=== PATIENT | female | born 1950 | race Caucasian/White ===

== ENCOUNTER 2017-08-18 17:40 | Emergency (ER) | payer OTHER ==
[~2017-08-18] VITALS: Ht 170.2 cm; Wt 108.9 kg
--- NOTE | 2017-08-18 18:08 | ED.ADGEN ---
Past History Past Medical History: Anxiety, Bipolar, Depression, Other Adult General Chief Complaint Chief Complaint " ... I am getting kicked out of my place where I live... I just want to .. I first want to syed my social security check... and give the money to my kids.. so then it will be time for me to go...".." I am going to cut my wrists..." HPI HPI Patient is a 66 year old female who presents with above hx and complaints of suicidality ideation and depression. Pt. has hx bipolar depression, psych disorder, and borderline personality traits . Patient has had previous 3 prior suicide attempts to by cutting her wrist and one by med overdose. Patient denies any medical congestion currently. Patient very distraught about request by the assisted nursing facility to have her move out because she is has violated housing regulations repeatedly. Patient states she will color this time by cutting her wrists, but has not done so because she wants to syed her disability check first. Patient does have a past history of polysubstance abuse. Review of Systems Review of Systems Constitutional: Denies fever or chills [] Eyes: Denies change in visual acuity, redness, or eye pain [] HENT: Denies nasal congestion or sore throat [] Respiratory: Denies cough or shortness of breath [] Cardiovascular: No additional information not addressed in HPI [] GI: Denies abdominal pain, nausea, vomiting, bloody stools or diarrhea [] : Denies dysuria or hematuria [] Musculoskeletal: Denies back pain or joint pain []history of chronic fibromyalgia pain Integument: Denies rash or skin lesions [] Neurologic: Denies headache, focal weakness or sensory changes [] Endocrine: Denies polyuria or polydipsia [] All other systems were reviewed and found to be within normal limits, except as documented in this note. Family History Family History Noncontributory Current Medications Current Medications Current Medications Medications (Trade) Dose Ordered Sig/Juan Jose Start Time Stop Time Status Last Admin Dose Admin Acetaminophen/ Hydrocodone Bitart (Lortab 7.5/325) 1 tab 1X ONCE 08/19/17 01:45 08/19/17 02:13 DC 08/19/17 01:41 1 TAB Alprazolam (Xanax) 0.5 mg 1X ONCE 08/19/17 02:15 08/19/17 02:16 DC Diphenhydramine HCl (Benadryl) 50 mg 1X ONCE 08/18/17 22:15 08/18/17 22:16 DC 08/18/17 22:11 50 MG Magnesium Hydroxide (Milk Of Magnesia) 2,400 mg 1X ONCE 08/18/17 20:15 08/18/17 20:16 DC 08/18/17 20:41 2,400 MG Olanzapine (ZyPREXA ZYDIS) 5 mg 1X PRN PRN 08/19/17 01:30 08/19/17 01:39 5 MG Olanzapine (ZyPREXA) 5 mg 1X ONCE 08/18/17 22:15 08/18/17 22:16 DC 08/18/17 22:07 5 MG Ondansetron HCl (Zofran) 4 mg 1X ONCE 08/18/17 19:45 08/18/17 19:46 DC 08/18/17 19:37 4 MG Sodium Chloride 1,000 ml @ 1,000 mls/hr Q1H 08/18/17 18:09 08/18/17 19:08 DC 08/18/17 18:59 1,000 MLS/HR Allergies Allergies Allergies Coded Allergies Type Severity Reaction Last Updated Verified lorazepam Allergy Unknown 08/18/17 Yes Physical Exam Physical Exam Constitutional: In moderately acute emotional distress, non-toxic appearance. [] HENT: Normocephalic, atraumatic, bilateral external ears normal, oropharynx moist, no oral exudates, nose normal. [] Eyes: PERRLA, EOMI, conjunctiva normal, no discharge. [] Neck: Normal range of motion, no tenderness, supple, no stridor. [] Cardiovascular:Heart rate regular rhythm, no murmur [] Lungs & Thorax: Bilateral breath sounds clear to auscultation [] Abdomen: Bowel sounds normal, soft, no tenderness, no masses, no pulsatile masses. Obese. Old scars Skin: Warm, dry, no erythema, no rash. [] Back: No tenderness, no CVA tenderness. [] Extremities: No tenderness, no cyanosis, no clubbing, ROM intact, no edema. [] Neurologic: Alert and oriented X 3, normal motor function, normal sensory function, no focal deficits noted. [] Psychologic: Affect anxious and tearful, judgement poor insight, impulsive, mood depressed. Current Patient Data Vital Signs Vital Signs Date Time Temp Pulse Resp B/P (MAP) Pulse Ox O2 Delivery O2 Flow Rate FiO2 08/19/17 01:57 98.7 74 20 112/67 (82) 99 08/19/17 01:41 Room Air Lab Results Laboratory Tests Test 08/18/17 18:15 08/18/17 18:35 Urine Collection Type Unknown Urine Color Yellow Urine Clarity Hazy Urine pH 6.5 Urine Specific [place] 1.015 Urine Protein Neg (NEG-TRACE) Urine Glucose (UA) Neg mg/dL (NEG) Urine Ketones (Stick) Neg mg/dL (NEG) Urine Blood Neg (NEG) Urine Nitrite Neg (NEG) Urine Bilirubin Neg (NEG) Urine Urobilinogen Dipstick 0.2 mg/dL (0.2 mg/dL) Urine Leukocyte Esterase Neg (NEG) Urine RBC 1-2 /HPF (0-2) Urine WBC Occ /HPF (0-4) Urine Squamous Epithelial Cells Many /LPF Urine Bacteria Few /HPF (0-FEW) Urine Mucus Slight /LPF Urine Opiates Screen Pos (NEG) Urine Methadone Screen Neg (NEG) Urine Barbiturates Neg (NEG) Urine Phencyclidine Screen Neg (NEG) Urine Amphetamine/Methamphetamine Neg (NEG) Urine Benzodiazepines Screen Pos (NEG) Urine Cocaine Screen Neg (NEG) Urine Cannabinoids Screen Neg (NEG) Urine Ethyl Alcohol Neg (NEG) White Blood Count 9.7 x10^3/uL (4.0-11.0) Red Blood Count 4.21 x10^6/uL (3.50-5.40) Hemoglobin 12.9 g/dL (12.0-15.5) Hematocrit 38.1 % (36.0-47.0) Mean Corpuscular Volume 91 fL (79-100) Mean Corpuscular Hemoglobin 31 pg (25-35) Mean Corpuscular Hemoglobin Concent 34 g/dL (31-37) Red Cell Distribution Width 13.0 % (11.5-14.5) Platelet Count 259 x10^3/uL (140-400) Neutrophils (%) (Auto) 57 % (31-73) Lymphocytes (%) (Auto) 34 % (24-48) Monocytes (%) (Auto) 7 % (0-9) Eosinophils (%) (Auto) 2 % (0-3) Basophils (%) (Auto) 0 % (0-3) Neutrophils # (Auto) 5.6 x10^3uL (1.8-7.7) Lymphocytes # (Auto) 3.3 x10^3/uL (1.0-4.8) Monocytes # (Auto) 0.6 x10^3/uL (0.0-1.1) Eosinophils # (Auto) 0.2 x10^3/uL (0.0-0.7) Basophils # (Auto) 0.0 x10^3/uL (0.0-0.2) Erythrocyte Sedimentation Rate 40 (0-25) H Prothrombin Time 10.8 SEC (9.4-11.4) Prothrombin Time INR 1.1 (0.9-1.1) PTT 25 SEC (23-33) Sodium Level 139 mmol/L (136-145) Potassium Level 4.5 mmol/L (3.5-5.1) Chloride Level 101 mmol/L (98-107) Carbon Dioxide Level 27 mmol/L (21-32) Anion Gap 11 (6-14) Blood Urea Nitrogen 20 mg/dL (7-20) Creatinine 0.8 mg/dL (0.6-1.0) Estimated GFR (Cockcroft-Gault) 72.0 Glucose Level 113 mg/dL (70-99) H Calcium Level 9.3 mg/dL (8.5-10.1) Magnesium Level 1.7 mg/dL (1.8-2.4) L Troponin I Quantitative < 0.017 ng/mL (0-0.055) Salicylates Level 5.2 mg/dL (2.8-20.0) Salicylate Last Dose Date Unknown Salicylate Last Dose Time Unknown Acetaminophen Level < 2.0 mcg/mL (10-30) L Acetaminophen Last Dose Date Unknown Acetaminophen Last Dose Time Unknown Ethyl Alcohol Level < 10 mg/dL (0-10) EKG EKG My interpretation of EKG shows a sinus rhythm at 69 bpm with no acute changes. There is some mild left axis changes. There is some nonspecific inferior changes. No findings of acute STEMI with contralateral changes. Radiology/Procedures Radiology/Procedures [] Course & Med Decision Making Course & Med Decision Making Pertinent Labs and Imaging studies reviewed. (See chart for details) Telemetry psych- Dr. Rica Sherwood - recommends admission for severe exacerbation of her depression, bipolar disorder. . See report. [facility] agreed [facility] accept patient 0130 hrs. [] Final Impression Final Impression 1. Suicidal ideation 2. Depression 3. Chronic pain 4. Hypomagnesium 5. Hx .Borderline Personality 6. Hx. Bipolar[] 7. Morbid Obesity 8. Fibromyalgia Problems: Dragon Disclaimer Dragon Disclaimer This electronic medical record was generated, in whole or in part, using a voice recognition dictation system. SANNA ANDRES MD Aug 18, 2017 18:08
[2017-08-18] MEDS ORDERED: IV NORMAL SALINE 1,000ML 1,000 ML IV SCH (18:09)
[2017-08-18 18:55] LABS: BASO % 0 % (0-3); EOS # 0.2 x10^3/uL (0.0-0.7); EOS % 2 % (0-3); HEMATOCRIT 38.1 % (36.0-47.0); HEMOGLOBIN 12.9 g/dL (12.0-15.5); LYMPH # 3.3 x10^3/uL (1.0-4.8); LYMPH % 34 % (24-48); MEAN CORPUSCULAR HEMOGLOBIN 31 pg (25-35); MEAN CORPUSCULAR HGB CONC 34 g/dL (31-37); MEAN CORPUSCULAR VOLUME 91 fL (79-100); MONO # 0.6 x10^3/uL (0.0-1.1); MONO % 7 % (0-9); NEUT # 5.6 x10^3uL (1.8-7.7); NEUT % 57 % (31-73); PLATELET COUNT 259 x10^3/uL (140-400); RED BLOOD COUNT 4.21 x10^6/uL (3.50-5.40); WHITE BLOOD COUNT 9.7 x10^3/uL (4.0-11.0)
[2017-08-18 19:04] LABS: CALCIUM 9.3 mg/dL (8.5-10.1); CREATININE 0.8 mg/dL (0.6-1.0); MAGNESIUM 1.7 mg/dL (1.8-2.4); POTASSIUM 4.5 mmol/L (3.5-5.1)
[2017-08-18 19:06] LABS: AMPHETAMINE/METHAMPHETAMINE NEG (NEG); BARBITURATES NEG (NEG); BENZODIAZEPINES POS (NEG); CANNABINOIDS NEG (NEG); COCAINE NEG (NEG); METHADONE NEG (NEG); OPIATES POS (NEG); PHENCYCLIDINE NEG (NEG)
[2017-08-18 19:08] LABS: ACETAMIN < 2.0 mcg/mL (10-30); ETHANOL < 10 mg/dL (0-10); SALIC 5.2 mg/dL (2.8-20.0)
[2017-08-18 19:30] LABS: BILIRUBIN,URINE NEG (NEG); CLARITY,URINE HAZY; COLOR,URINE YELLOW; GLUCOSE,URINE NEG (NEG)
[2017-08-18 19:31] LABS: BACTERIA,URINE FEW /HPF (0-FEW); NITRITE,URINE NEG (NEG); SQUAMOUS EPITHELIAL CELL,UR MANY /LPF; UROBILINOGEN,URINE 0.2 mg/dL (0.2 mg/dL); WBC,URINE OCC /HPF (0-4)
[2017-08-18] MEDS ORDERED: ONDANSETRON PF 4 MG/2 ML VIAL. IV ONE (19:45)
[2017-08-18 20:06] LABS: SEDIMENTATION RATE 40 (0-25)
[2017-08-18] MEDS ORDERED: MAGNESIUM HYDROXIDE 2,400 MG/30 ML ORAL.SUSP. PO ONE (20:15)
[2017-08-18] MEDS ORDERED: OLANZapine 2.5 MG TABLET PO ONE (22:15)
[2017-08-18] MEDS ORDERED: diphenhydrAMINE 50 MG/ML VIAL IVP ONE (22:15)
[2017-08-18] MEDS ORDERED: ALPRAZolam 0.25 MG TABLET PO ONE (22:15)
[2017-08-19] MEDS ORDERED: ALPRAZolam 0.5 MG TABLET PO ONE (01:30)
[2017-08-19] MEDS ORDERED: HYDROcodone/APAP 7.5/325MG 1 TAB TABLET ONE (01:38)
[2017-08-19] MEDS ORDERED: HYDROcodone/APAP 7.5/325MG 1 TAB TABLET PO ONE (01:45)
[2017-08-19 01:57] VITALS: BP 112/67
[2017-08-19] MEDS ORDERED: ALPRAZolam 0.25 MG TABLET PO ONE (02:15)
--- NOTE | 2017-08-19 04:34 | EKG ---
[address] [address] Test Date: 2017-08-18 Test Time: 18:31:14 Pat Name: AMNA GRIGGS Department: Room: Gender: F Community Relations Specialist: : [id number] Requested By: SANNA ANDRES Order Number: [id number] Reading MD: Jorge Casillas Measurements Intervals Only Rate: 69 P: 45 [place]: 164 QRS: -18 QRSD: 70 T: 18 QT: 376 QTc: 404 Interpretive Statements SINUS RHYTHM LEFTWARD AXIS QRS(T) CONTOUR ABNORMALITY CONSISTENT WITH POSSIBLE INFERIOR INFARCT PROBABLY OLD ABNORMAL ECG RI6.01 No previous ECG available for comparison Electronically Signed On 08-22-2017 14:53:23 DISASTER RESPONSE DIRECTOR by Jorge Casillas
== END 2017-08-19 01:55 | disposition short-term general hospital (02) ==
LOC: EEVIPCON 17:40 → ER 17:40
DX: R45.851 Suicidal ideations (principal); F31.9 Bipolar disorder, unspecified; G89.29 Other chronic pain; E83.42 Hypomagnesemia; F60.3 Borderline personality disorder; E66.01 Morbid (severe) obesity due to excess calories; M79.7 Fibromyalgia; F41.9 Anxiety disorder, unspecified; Z88.8 Allergy status to other drugs, medicaments and biological substances
CPT/HCPCS: 36415; 80048; 80307; 81001; 83735; 84443; 84484; 85025; 85610; 85651; 85730; 93005; 96361; 96374; 96375; 99285; G0480; J1200; J2405; G0479; J7030